=== PATIENT | male | born 1980 | race Caucasian/White ===

== ENCOUNTER 2020-10-21 15:42 | Outpatient (CLI) | payer BC, OTHER, SELFPAY | END 2020-10-21 15:43 | disposition home or self-care (01) | LOC: ANHCOVIDVC 15:42 | PROVIDERS: PCP Internal Medicine | DX: Z23 Encounter for immunization (principal) | CPT/HCPCS: 0001A; 91300 ==

== ENCOUNTER 2020-11-11 15:43 | Outpatient (CLI) | payer BC, OTHER, SELFPAY | END 2020-11-11 15:44 | disposition home or self-care (01) | LOC: ANHCOVIDVC 15:43 | PROVIDERS: PCP Internal Medicine | DX: Z23 Encounter for immunization (principal) | CPT/HCPCS: 0002A; 91300 ==

== ENCOUNTER 2023-12-19 10:13 | Outpatient (CLI) | payer OTHER, SELFPAY ==
[2023-12-19 14:10] LABS: Alanine Aminotransferase 51 U/L (6-50); Albumin Level 4.5 g/dL (3.5-5.1); Alkaline Phosphatase 66 U/L (38-126); Anion Gap 7 mmol/L (4-12); Aspartate Amino Transferase 49 U/L (17-59); Bilirubin,Total 0.6 mg/dL (0.2-1.3); Blood Urea Nitrogen 15 mg/dL (9-20); Calcium 9.3 mg/dL (8.4-10.2); Carbon Dioxide 27 mmol/L (22-30); Chloride 105 mmol/L (98-107); Cholesterol 166 mg/dL (0-200); Estimated Glomerular Filt Rate > 60; Glucose 109 mg/dL (65-110); HDL Direct 34 mg/dL; Potassium 4.4 mmol/L (3.4-5.0); Sodium 139 mmol/L (137-145); Triglycerides 110 mg/dL (<150)
[2023-12-19 14:21] LABS: LDL Cholesterol Direct 117 mg/dL
[2023-12-19 14:37] LABS: Prostate Specific Antigen 0.8 ng/mL (< OR = 4.0)
== END 2023-12-19 10:14 | disposition home or self-care (01) ==
LOC: ANHGOSHLAB 10:15
PROVIDERS: PCP Family Medicine; Visit Provider Family Medicine
DX: Z13.228 Encounter for screening for other metabolic disorders (principal); Z13.220 Encounter for screening for lipoid disorders; Z15.01 Genetic susceptibility to malignant neoplasm of breast; Z15.09 Genetic susceptibility to other malignant neoplasm
CPT/HCPCS: 36415; 80053; 80061; 84153